=== PATIENT | female | born 1980 | race Caucasian/White ===

== ENCOUNTER 2018-10-03 05:38 | Outpatient (CLI) | payer BC ==
[~2018-10-03] VITALS: Ht 167.6 cm; Wt 90.7 kg
[2018-10-10] MEDS ORDERED: OXYC1TAB87 PO (13:30)
[2018-10-10] MEDS ORDERED: IBUP-1780 PO (13:30)
[2018-10-10] MEDS ORDERED: DOCU-143 PO (13:30)
== END 2018-10-03 12:00 | disposition home or self-care (01) ==
LOC: PREOP 05:38
PROVIDERS: ATTEND Obstetrics & Gynecology
DX: Z01.818 Encounter for other preprocedural examination (principal)

== ENCOUNTER 2018-10-10 10:27 | Day surgery (SDC) | payer BC ==
[~2018-10-10] VITALS: Ht 167.6 cm; Wt 90.7 kg
--- OUTSIDE RECORDS SUMMARY | 2018-10-10 10:40 | XMS REPORT ---
Author Author Petty Daley [facility] Address [address] [place], [place] [id number] Care Team Providers Care Water Taxi Captain Name Role Phone Petty Daley PCP Petty Daley PreferredProvider Allergies and Adverse Reactions Name Reaction Notes No known allergies Plan of Treatment Planned Activity Comments Planned Date Planned Time Plan/Goal Holter monitoring 08/06/2018 12:00 AM 2D Echo Complete - Adult 08/06/2018 12:00 AM Medications Name Start Date Expiration Date SIG Comments amoxicillin 875 mg oral tablet 07/15/2018 07/25/2018 take 1 tablet (875 mg) by oral route every 12 hours for 10 days Discontinued Name Start Date Discontinued Date SIG Comments Levaquin 500 mg oral tablet 02/03/2018 07/15/2018 take 1 tablet (500 mg) by oral route once daily for 10 days Symbicort 160-4.5 mcg/actuation inhalation HFA aerosol inhaler 02/03/20182017 inhale 1 puffs by inhalation route 4 times per day and then rinse throat Problem List Not available. Vital Signs Date Time BP-Sys(mm[Hg] BP-Jodi(mm[Hg]) HR(bpm) RR(rpm) Temp WT HT HC BMI BSA BMI Percentile O2 Sat(%) 08/06/2018 1:44:00 PM 126 mmHg 86 mmHg 99 bpm 18 rpm 98.1 F 198.25 lbs 65 in 32.9902 kg/m 2.0308 m 98 % 07/15/2018 11:32:00 AM 118 mmHg 74 mmHg 76 bpm 18 rpm 98.2 F 203.25 lbs 65 in 33.82 kg/m2 2.06 m2 98 % 02/03/2018 3:10:00 PM 128 mmHg 84 mmHg 78 bpm 18 rpm 97.6 F 197.25 lbs 65 in 32.8238 kg/m 2.0257 m 99 % Social History Name Description Comments Tobacco Never smoker Alcohol Never Caffeine Never History of Procedures Date Ordered Description Order Status 02/03/2018 12:00 AM THER/PROPH/DIAG INJ SC/IM Reviewed 02/03/2018 12:00 AM Decadron 4mg Injection Reviewed 02/03/2018 12:00 AM Depo-Medrol 40mg Injection Reviewed Results Summary Not available. History Of Immunizations Not available. History of Past Illness Name Date of Onset Comments No significant medical history Cough Feb 03 2018 3:12PM Pneumonia of right lower lobe due to Mycoplasma pneumoniae Feb 03 2018 3: 12PM Disorder of both eustachian tubes Feb 03 2018 3:12PM Shortness Of Breath Aug 06 2018 1:50PM Palpitations Aug 06 2018 1:50PM Arm pain, anterior, right Aug 06 2018 1:50PM Cyanosis of fingertip Aug 06 2018 1:50PM Purulent rhinitis Jul 15 2018 11:32AM Auditory tube disorder, bilateral Jul 15 2018 11:32AM Payers Insurance Name Company Name Plan Name Plan Number Policy Number Policy Group Number Start Date [facility] [id number] N/A [employer] Financial Assistance [facility] Financial Andrew 50 percent N/A History of Encounters Visit Date Visit Type Provider 08/06/2018 Office visit Petty Daley APRN 07/15/2018 Office visit Petty Daley APRN 02/03/2018 Office visit Petty Daley APRN
--- OUTSIDE RECORDS SUMMARY | 2018-10-10 10:40 | XMS REPORT ---
Author Author Petty Daley [facility] Address [address] [place], [place] [id number] Care Team Providers Care Photogrammetry Airplane Pilot Name Role Phone Petty Daley PCP Petty [...] Cyanosis of fingertip Aug 06 2018 1:50PM Payers Insurance Name Company Name Plan Name Plan Number Policy Number Policy Group Number Start Date [facility] [id number] N/A [employer] [employer] Financial Assistance [employer] Financial Andrew 50 percent N/A History of Encounters Visit Date Visit Type Provider 08/06/2018 Office visit Petty Daley SANITARIAN INSPECTOR 07/15/2018 Office visit Petty Daley SANITARIAN INSPECTOR 02/03/2018 Office visit Petty Daley SANITARIAN INSPECTOR
--- OUTSIDE RECORDS SUMMARY | 2018-10-10 10:41 | XMS REPORT ---
Author Author Petty Daley [facility] Address [address] [place], [place] [id number] Care Team Providers Care Pest Control Operator Name Role Phone Petty Daley PCP Petty Daley PreferredProvider Allergies and Adverse Reactions Name Reaction Notes No known allergies Plan of Treatment Not available. Medications Active Name Start Date Estimated Completion Date SIG Comments Levaquin 500 mg oral tablet 02/03/2018 take 1 tablet (500 mg) by oral route once daily for 10 days Symbicort 160-4.5 mcg/actuation inhalation HFA aerosol inhaler 02/03/2018 inhale 1 puffs by inhalation route 4 times per day and then rinse throat Problem List Not available. Vital Signs Date Time BP-Sys(mm[Hg] BP-Jodi(mm[Hg]) HR(bpm) RR(rpm) Temp WT HT HC BMI BSA BMI Percentile O2 Sat(%) 02/03/2018 3:10:00 PM 128 mmHg 84 mmHg [...] both eustachian tubes Feb 03 2018 3:12PM Payers Insurance Name Company Name Plan Name Plan Number Policy Number Policy Group Number Start Date [employer] [id number] N/A [place] [facility] Financial Assistance [facility] Financial Andrew 50 percent N/A History of Encounters Visit Date Visit Type Provider 02/03/2018 Office visit Petty Daley APRN
--- OUTSIDE RECORDS SUMMARY | 2018-10-10 10:41 | XMS REPORT | Continuity of Care Document ---
Author Author [facility] Organization [facility] Address Unknown Phone Unavailable Allergies Active Description Code Type Severity Reaction Onset Reported/Identified Relationship to Patient Clinical Status Yes No Known Drug Allergies [id number] Drug Allergy Unknown N/A 10/03/2018 Medications There is no data. Problems Date Dx Coded Attending Type Code Diagnosis Diagnosed By 10/03/2018 RADHA CHACON MD Ot Z01.818 ENCOUNTER FOR OTHER PREPROCEDURAL EXAMIN Procedures There is no data. Results There is no data. Encounters ACCT No. Visit Date/Time Discharge Status Pt. Type Provider Facility Loc./Unit Complaint [id number] 08/06/2018 14:33:19 08/06/2018 23:59:59 CLS Outpatient Kaylin Daley [id number] 02/03/2018 15:39:35 02/03/2018 23:59:59 CLS Outpatient Kaylin Daley [id number] 10/03/2018 05:38:00 10/03/2018 12:00:00 DIS Outpatient RADHA CHACON MD [facility] PREOP MEN[place]AGIA, [place] [id number] 10/10/2018 10:27:00 ACT Outpatient RADHA CHACON MD [facility] SDC MENORRHAGIA, PELVIC MASS
[2018-10-10] MEDS ORDERED: LACTATED RINGERS 1,000 ML IV PRN (10:57)
[2018-10-10 11:00] VITALS: BP 141/89
[2018-10-10] MEDS ORDERED: ceFAZolin INJECTION 1,000 MG in NS (IVPB) 50 ML IV ONE (11:00)
[2018-10-10 11:29] LABS: BASOPHILS % (AUTO) 0 % (0-10); EOSINOPHILS # (AUTO) 0.1 10^3/uL (0.0-0.3); EOSINOPHILS % (AUTO) 1 % (0-10); HEMATOCRIT 41 % (35-52); HEMOGLOBIN 13.9 G/DL (11.5-16.0); LYMPHOCYTES % (AUTO) 27 % (12-44); MEAN CORPUSCULAR HEMOGLOBIN 27 PG (25-34); MEAN CORPUSCULAR HGB CONC 34 G/DL (32-36); MEAN CORPUSCULAR VOLUME 80 FL (80-99); MEAN PLATELET VOLUME 9.1 FL (7.4-10.4); MONOCYTES # (AUTO) 0.4 X 10^3 (0.0-1.0); MONOCYTES % (AUTO) 5 % (0-12); NEUTROPHILS # (AUTO) 4.9 X 10^3 (1.8-7.8); NEUTROPHILS % (AUTO) 67 % (42-75); PLATELET COUNT 336 10^3/uL (130-400); RED BLOOD COUNT 5.11 10^6/uL (4.35-5.85); RED CELL DISTRIBUTION WIDTH 14.3 % (10.0-14.5); WHITE BLOOD COUNT 7.3 10^3/uL (4.3-11.0)
[2018-10-10] MEDS ORDERED: FAMOTIDINE 20MG/2ML IV (PEPCID) ONE (11:58)
[2018-10-10] MEDS ORDERED: NS (IVPB) 50 ML ONE (12:00)
[2018-10-10] MEDS ORDERED: ceFAZolin 1,000 MG/10 ML (ANCEF) VIAL ONE (12:00)
[2018-10-10] MEDS ORDERED: FAMOTIDINE 20MG/2ML IV (PEPCID) IV ONE (12:15)
[2018-10-10] MEDS ORDERED: ONDANSETRON 4 MG/2 ML (SDV) Z0FRAN ONE (12:51)
[2018-10-10] MEDS ORDERED: LIDOCAINE PF 2% 5 ML (XYLOCAINE) VIAL ONE (12:51)
[2018-10-10] MEDS ORDERED: DEXAMETHASONE 10 MG/ML (DECADRON) 1 ML VIAL ONE (12:51)
[2018-10-10] MEDS ORDERED: ROCURONIUM 10 MG/ML 5 ML SYRINGE IV ONE (12:51)
[2018-10-10] MEDS ORDERED: SEVOFLURANE (ULTANE) 15 ML INHAL SOLN ONE ×2 (12:51→14:51)
[2018-10-10] MEDS ORDERED: proPOfol 200 MG/20 ML (DIPRIVAN) VIAL IV ONE (12:51)
[2018-10-10] MEDS ORDERED: fentaNYL INJECTION 100 MCG/2 ML AMP ONE (12:52)
[2018-10-10] MEDS ORDERED: MIDAZOLAM 2 MG/2 ML (VERSED) VIAL ONE (12:52)
[2018-10-10] MEDS ORDERED: BUP/EPI 0.5% 1:200,000 (SENSORCAINE) 30 ML VIAL ONE (13:01)
[2018-10-10] MEDS ORDERED: D5 LR IV SOLUTION 1,000 ML IV SCH (13:25)
--- NOTE | 2018-10-10 13:25 | Progress Note-Pre Operative ---
Pre-Operative Progress Note H&P Reviewed The H&P was reviewed, patient examined and no changes noted. Date Seen by Provider: Oct 10, 2018 Time Seen by Provider: 13:24 Date H&P Reviewed: Oct 10, 2018 Time H&P Reviewed: 13:24 Pre-Operative Diagnosis: dub/menorrhagia RADHA CHACON MD Oct 10, 2018 1:25 pm
--- NOTE | 2018-10-10 13:25 | Progress Note-Post Operative ---
Post-Operative Progess Note Surgeon (s)/Business Analyst Project Manager (s) Surgeon RADHA CHACON MD Business Analyst Project Manager: Hamida Gallardo Pre-Operative Diagnosis dub/menorrhagia Post-Operative Diagnosis Same with LEFT OVARIAN SOLID MASS AND WITH pathology pending Procedure & Operative Findings Date of Procedure 10/10/18 Procedure Performed/Findings TL H with bilateral salpingectomy Anesthesia Type GETA Estimated Blood Loss Estimated blood loss (mL): MIN Specimens/Packing Specimens Removed Uterus, LEFT OVARY, AND BOTH fallopian tubes Packing: None required RADHA CHACON MD Oct 10, 2018 13:25
[2018-10-10] MEDS ORDERED: ONDANSETRON 4 MG/2 ML (SDV) Z0FRAN IVP PRN ×2 (13:30→15:15)
[2018-10-10] MEDS ORDERED: KETOROLAC 30 MG/ML VIAL IVP SCH ×2 (13:30→21:00)
[2018-10-10] MEDS ORDERED: OXYC1TAB87 PO (13:30)
[2018-10-10] MEDS ORDERED: PROMETHAZINE INJ 25 MG/ML (PHENERGAN) AMP IM PRN (13:30)
[2018-10-10] MEDS ORDERED: IBUP-1780 PO (13:30)
[2018-10-10] MEDS ORDERED: MEPERIDINE (DEMEROL) INJ 100 MG/ML IM PRN (13:30)
[2018-10-10] MEDS ORDERED: oxyCODONE/APAP 5/325MG (PERCOCET 5) TABLET PO PRN (13:30)
[2018-10-10] MEDS ORDERED: BENZOCAINE/MENTHOL (DERMOPLAST) 56 ML CAN TP PRN (13:30)
[2018-10-10] MEDS ORDERED: WATER (STERILE) FOR INJ 10 ML BTL INJ ONE (13:30)
[2018-10-10] MEDS ORDERED: DOCU-143 PO (13:30)
--- NOTE | 2018-10-10 13:31 | Discharge Instructions ---
Discharge Instructions Discharge Medications New, Converted or Re-Newed RX: RX on Chart Patient Instructions Patient Instructions: As instructed [facility] to [facility]: as instructed Activity & Diet Discharge Diet: No Restrictions Activity as Tolerated: No Orders-Post D/C & Referrals Follow Up Appt: Return to clinic on Saturday, October 13, 2018 at 930 a.m. for staple removal Call to make follow up appt. for patient in 4 weeks. Activity: Rest for 24 hours, than as tolerated. Wound Care: May remove Band-Aid tomorrow. Replace as desired. Keep incisions clean and dry. Wash daily with soap and water. Please call in RX to patient pharmacy. Diet: As tolerated-Clear Liquids only if nauseated. Tomorrow, may shower or tub bathe as desired. No driving for 24 hours, no alcoholic beverages for 24 hours, and nothing per vagina (no tampons, douching, or intercourse) for 8 weeks. Patient to return to the clinic as soon as possible for: Temperature greater than 101F, Severe Pain, Foul discharge from incision or vagina, Excessive Bleeding (more than a period). RADHA CHACON MD Oct 10, 2018 1:31 pm
[2018-10-10] MEDS ORDERED: diphenhydrAMINE 50 MG/ML INJ (BENADRYL) ONE (13:44)
[2018-10-10] MEDS ORDERED: NEOSTIGMINE 1 MG/ML 5 ML SYRINGE ONE (14:42)
[2018-10-10] MEDS ORDERED: FUROSEMIDE 40 MG/4 ML INJ (LASIX) ONE (14:42)
[2018-10-10] MEDS ORDERED: INDIGO CARMINE 8 MG/ML 5 ML AMP ONE (14:42)
[2018-10-10] MEDS ORDERED: GLYCOPYRROLATE 0.2 MG/ML (ROBINUL) 2 ML VIAL ONE (14:42)
[2018-10-10] MEDS ORDERED: KETOROLAC 30 MG/ML VIAL ONE (14:53)
[2018-10-10] MEDS ORDERED: WATER (STERILE) FOR INJECTION 0 ML ONE (14:53)
[2018-10-10] MEDS ORDERED: morphine INJ 10 MG/ML 1ML (SYR OR VIAL) ONE (14:53)
[2018-10-10] MEDS ORDERED: ESTROGENS CONJ IV 25 MG/5 ML (PREMARIN) VIAL ONE (14:53)
[2018-10-10] MEDS ORDERED: morphine INJ 10 MG/ML 1ML (SYR OR VIAL) IVP ONE (15:15)
[2018-10-10] MEDS ORDERED: HYDROmorphone 2 MG/ML VIAL (DILAUDID) IV ONE (15:15)
[2018-10-10 16:35] VITALS: BP 110/74
[2018-10-10] MEDS ORDERED: MEPERIDINE (DEMEROL) INJ 100 MG/ML ONE (16:54)
[2018-10-10] MEDS ORDERED: FLU QUADRIvalent (5+ YOA) 2018-2019 (AFLURIA) 0.5 ML IM ONE (17:00)
[2018-10-10] MEDS ORDERED: PROMETHAZINE INJ 25 MG/ML (PHENERGAN) AMP ONE (17:01)
[2018-10-10] MEDS ORDERED: D5 LR IV SOLUTION 1,000 ML IV ONE (17:08)
[2018-10-10 20:53] VITALS: BP 103/63
[2018-10-10] MEDS ORDERED: IBUPROFEN 800 MG (MOTRIN) TAB PO ONE (22:29)
[2018-10-10] MEDS: IBUPROFEN 800 MG (MOTRIN) TAB PO SCH (22:31)
[2018-10-11 01:00] VITALS: BP 113/72
--- NOTE | 2018-10-11 01:05 | OPERATIVE REPORT ---
DATE OF SERVICE: 10/10/2018 PREOPERATIVE DIAGNOSES: Dysfunctional uterine bleeding and menorrhagia. POSTOPERATIVE DIAGNOSES: Dysfunctional uterine bleeding and menorrhagia with solid mass involving left ovary and pathology pending. OPERATIVE PROCEDURE: Total laparoscopic hysterectomy with bilateral salpingectomy with left oophorectomy as well as a cystoscopy. OPERATIVE DESCRIPTION: With the patient in supine position under satisfactory general anesthesia, she was prepped and draped in the usual fashion for abdominal and vaginal surgery after being repositioned in dorsal lithotomy position in the [facility] for robotic surgery. Weighted speculum placed in posterior fornix of vagina, cervix exposed and grasped anteriorly with single tooth tenaculum. Uterus was sounded to 14 cm with uterine sound. Cervix then serially dilated with Asher dilators and then a DANIEL II manipulator was placed using a 6 mm x 8 cm uterine probe and a 25 mm colpotomy ring. Sutures of #1 Vicryl placed at 3 and 9 o'clock position of the cervix to affix the cervix to the manipulator. The tenaculum and speculum were removed and a Sheldon catheter was placed in the urinary bladder. The patient was brought in low dorsal lithotomy position. A 12 mm incision made 4 cm superior to the umbilicus, 8 mm incisions were made 9 cm lateral to the umbilicus. All incision sites were infiltrated with 0.25% Marcaine with epinephrine prior to incision. Veress needle was placed through the midline incision, correct placement confirmed with a water drop test and the abdomen insufflated with 2.4 liters of carbon dioxide. The Veress needle was removed and 12 mm Optiview laparoscopic port placed. Under direct vision, 8 mm ports were placed through the lateral incision. The patient placed in Trendelenburg allowing the bowel to spill out of the pelvis. The da Karen column was advanced on the patient and docked and I retired to the da Karen console after placing operative instruments laterally and the ports. Using the vessel sealer on the right and a bipolar fenestrated grasper on the left, the pelvis was first examined. There was a large bulky, mottled appearance uterus consistent with adenomyosis and likely fibroids as well. Both fallopian tubes were essentially normal. The right ovary was normal, left ovary had a solid tumor on its distal pole. Laparoscope was rotated. The appendix was retrocecal, I could not see it. There appeared to be no abnormal pathology in that area, so that was left intact. Decision was made to go ahead with the total laparoscopic hysterectomy with bilateral salpingectomy to take the left ovary out as well secondary to the solid tumor that was visible. The right fallopian tube was grasped and elevated using the vessel sealer. The mesosalpinx was clamped, cauterized and divided that was continued stepwise across to the utero-ovarian pedicle and the utero-ovarian pedicle was treated in the same manner as was the round ligament, the broad ligament and eventually the cardinal ligament. Same procedure performed on the left except that the dissection was carried across the mesovarium to allow for removal of left ovary as well. The anterior lower uterine segment peritoneum was exposed. The vessel sealer was replaced with a monopolar shear and then an incision made across the peritoneum allowing for the bladder to be dissected down off the lower uterine segment exposing the anterior vaginal wall over the colpotomy ring. Colpotomy incision made at 12 o'clock position that was continued circumferentially until the entire colpotomy ring was exposed. The uterus with the tubes and ovaries still attached and with left ovary still attached was then extracted through the vagina. The vaginal cuff was closed with two running sutures of V-Loc barbed suture starting first on the right angle and continuing across until the vaginal cuff was essentially closed and then the second suture was used to ensure inclusion of the uterine vessels on the left, which had been taken care of on the right with the first suture and then the vaginal cuff was reperitonealized with the bladder peritoneum. Hemostasis was complete. The reapproximation was evident. There was no abnormal pathology at this point remaining. The right ovary was in situ and was well above the pelvis. The right ureter had been seemed to peristalse throughout the procedure. The left ureter could be visualized with some difficulty, it was seemed to peristalse. Cystoscopy was now performed to ensure ureteral efflux. With a cystoscope using sterile water as a distending medium, the patient had been given an amp of indigo carmine and 10 mg of Lasix. There was free efflux of blue urine from each ureteral orifice easily visualized. The procedure at this point was terminated. Speculum was placed in the vagina. The vaginal cuff was examined and found completely reapproximated and completely intact and completely hemostatic. Sponge and needle counts were correct at this point. Estimated blood loss was minimal. The patient tolerated the procedure well and was uneventfully awakened from general anesthesia and transferred to the recovery room in stable condition. Job ID: [id number] DocumentID: [id number] Dictated Date: 10/10/2018 14:47:21 Radio Electronics Officer Date: 10/11/2018 01:04:19 Dictated By: RADHA CHACON MD
[2018-10-11] MEDS ORDERED: IBUPROFEN 800 MG (MOTRIN) TAB PO ONE ×3 (04:53→10:19)
[2018-10-11] MEDS: IBUPROFEN 800 MG (MOTRIN) TAB PO SCH ×2 (04:57→10:24)
[2018-10-11 05:15] VITALS: BP 125/76
[2018-10-11 08:00] VITALS: BP 126/77
--- NOTE | 2018-10-11 08:10 | Progress Note-Standard ---
Standard Progress Note Progress Notes/Assess & Plan Date Seen by a Provider: Oct 11, 2018 Time Seen by a Provider: 08:09 Progress/Assessment & Plan This patient is without complaint. She is ambulating, voiding, tolerating oral intake, pain is controlled, patient denies headache, denies shortness of breath , denies nausea vomiting, denies chest pain, patient is requesting discharge home. Vital Signs 10/10/18 10/11/18 16:45 05:15 Temp 98.3 Pulse 104 Resp 18 B/P (MAP) 125/76 (92) Pulse Ox 97 O2 Delivery Room Air O2 Flow Rate 2.00 Vital signs are stable. Patient is afebrile. The abdomen is benign. The surgical incision dressings are clean and dry. Extremities show no clubbing or cyanosis. There is no Homans sign. Assessment and plan postoperative day number 1 doing well. Plan is for discharge home with follow-up in clinic Final Diagnosis Dysfunctional uterine bleeding/menorrhagia RADHA CHACON MD Oct 11, 2018 8:10 am
[2018-10-11] MEDS ORDERED: DOCUSATE SODIUM 100 MG (COLACE) CAP PO SCH (09:00)
[2018-10-11 10:54] VITALS: BP 126/77
--- NOTE | 2018-10-11 16:12 | Anesthesia-General Post-Op ---
General Patient Condition Mental Status/LOC: Same as Preop Cardiovascular: Satisfactory Nausea/Vomiting: Absent Respiratory: Satisfactory Pain: Controlled Complications: Absent Post Op Complications Complications None Follow Up Care/Instructions Patient Instructions None needed. Anesthesia/Patient Condition Patient Condition Patient is doing well, no complaints, stable vital signs, no apparent adverse anesthesia problems. No complications reported per nursing. CHAI CHENEY CRNA Oct 11, 2018 16:12
== END 2018-10-11 10:30 | disposition home or self-care (01) ==
LOC: SDC 10:27 → WS 16:05 → SDC 10-11 10:30
PROVIDERS: ATTEND Obstetrics & Gynecology
DX: N84.0 Polyp of corpus uteri (principal); D25.2 Subserosal leiomyoma of uterus; D25.1 Intramural leiomyoma of uterus; N80.0 Endometriosis of uterus; N83.8 Other noninflammatory disorders of ovary, fallopian tube and broad ligament; N83.12 Corpus luteum cyst of left ovary; N39.3 Stress incontinence (female) (male); K21.9 Gastro-esophageal reflux disease without esophagitis; Z11.2 Encounter for screening for other bacterial diseases
CPT/HCPCS: 36415; 84703; 85025; 86850; 86900; 86901; 87081; 88307; 94664